=== PATIENT | male | born 1965 | race Caucasian/White ===

== ENCOUNTER → 2017-03-10 | Outpatient (CLI) | payer OTHER ==
[~2017-03-10] MED LIST: AMLO1CAP12 PO; ESCI20TA PO; HYDR-879 PO
[2017-03-10 10:20] LABS: BLOOD UREA NITROGEN 20 mg/dL (7-18)
[2017-03-10 10:24] LABS: ASPARTATE AMINO TRANSFERASE 34 U/L (15-37)
== END | disposition home or self-care (01) ==
LOC: STAR 08:58
PROVIDERS: ATTEND Orthopaedic Surgery Orthopaedic Surgery of the Spine
DX: Z01.818 Encounter for other preprocedural examination (principal); R94.31 Abnormal electrocardiogram [ECG] [EKG]; M54.12 Radiculopathy, cervical region; M96.0 Pseudarthrosis after fusion or arthrodesis
CPT/HCPCS: 36415; 71020; 80053; 81003; 85025; 93005

== ENCOUNTER 2020-04-19 13:40 | Emergency (ER) | payer OTHER ==
[~2020-04-19] VITALS: Ht 177.8 cm; Wt 80.0 kg
[~2020-04-19 13:40] MED LIST changes: +ACET-1600 PO; -AMLO1CAP12 PO; +AMLO1CAP13 PO; +HYDR-3622 PO; -HYDR-879 PO
--- NOTE | 2020-04-19 14:13 | NUR ---
ASSUMED CARE OF PATIENT. PATIENT REPORTS LLQ ABD PAIN THAT GOES INTO THE GROIN THAT STARTED AT 930 AM THIS MORNING. PT MOVING AROUND GURNEY IN PAIN. AT BEDSIDE. VS STABLE. CALL LIGHT IN PLACE. PT WAITING TO SEE DOCTOR.
[2020-04-19] MEDS ORDERED: KETOROLAC 30 MG/1 ML ONE (14:20)
[2020-04-19] MEDS ORDERED: HYDROmorphone 1 MG/ML, 1ML INJ ONE ×2 (14:20→14:50)
[2020-04-19] MEDS ORDERED: ONDANSETRON 2MG/ML, 2ML ONE (14:20)
[2020-04-19] MEDS: HYDROmorphone 2 MG/ML, 1ML IVPush PRN ×2 (14:24→14:52)
[2020-04-19] MEDS ORDERED: ONDANSETRON 2MG/ML, 2ML IVPush ONE (14:30)
[2020-04-19] MEDS ORDERED: KETOROLAC 30 MG/1 ML IVPush ONE (14:30)
--- NOTE | 2020-04-19 14:31 | NUR ---
DR CANCHOLA HAS SEEN PATIENT. LAB IN ROOM. AT BEDSIDE. PT MEDICATED FOR 10/10 PAIN. WILL CONTINUE TO MONITOR.
--- NOTE | 2020-04-19 14:36 | NUR ---
PT NOW 3/10 PAIN AFTER MEDICATION. VS STABLE. AT BEDSIDE. PT AWARE WE NEED A UA. CALL LIGHT IN PLACE WILL CONTINUE TO MONITOR.
[2020-04-19 14:48] LABS: BASOPHILS # (AUTO) 0.02 x10^3/uL (0-0.1); BASOPHILS % (AUTO) 0 % (0-1); EOSINOPHILS # (AUTO) 0.09 x10^3/uL (0-0.4); EOSINOPHILS % (AUTO) 1 % (1-7); LYMPHOCYTES # (AUTO) 1.23 x10^3/uL (1-3.4); LYMPHOCYTES % (AUTO) 16 % (22-44); MD NO; MEAN CORPUSCULAR HEMOGLOBIN 30.7 pg (27.5-34.5); MEAN CORPUSCULAR HGB CONC 33.2 g/dL (33.2-36.2); MEAN CORPUSCULAR VOLUME 92.3 fL (81-97); MEAN PLATELET VOLUME 9.5 fL (7.4-10.4); MONOCYTES # (AUTO) 0.66 x10^3/uL (0.2-0.8); MONOCYTES % (AUTO) 9 % (2-9); NEUTROPHILS # (AUTO) 5.83 x10^3/uL (1.8-6.8); NEUTROPHILS % (AUTO) 75 % (42-75); PLATELET COUNT 236 x10^3/uL (130-400); RED BLOOD COUNT 5.49 x10^6/uL (4.38-5.82); RED CELL DISTRIBUTION WIDTH 12.3 % (9.4-14.8)
[2020-04-19 14:55] LABS: ALBUMIN 4.5 g/dL (3.4-5.0); ANION GAP 10 mmol/L (5-15); CALCIUM 9.4 mg/dL (8.5-10.1); CHLORIDE 107 mmol/L (98-107); CREATININE 1.18 mg/dL (0.7-1.3)
--- NOTE | 2020-04-19 15:04 | NUR ---
PT WENT TO CT
--- NOTE | 2020-04-19 15:37 | NUR ---
UA SENT. PT RESTING IN ROOM. NO ACUTE DISTRESS NOTED. 09/30 PAIN. AT BEDSIDE. WILL COTNINUE TO MONITOR.
[2020-04-19 15:49] LABS: MICROSCOPIC INDICATED
--- NOTE | 2020-04-19 16:16 | NUR ---
PT REPORTS HE IS FEELING BETTER. AT BEDSIDE. VS STABLE. NO ACUTE DISTRESS NOTED. WILL CONTINUE TO MONITOR.
--- NOTE | 2020-04-19 16:49 | NUR ---
DR CANCHOLA HAS UPDATED PATIENT. PATIENT READY FOR DC
[2020-04-19 16:57] VITALS: BP 137/82
== END 2020-04-19 16:59 | disposition home or self-care (01) ==
LOC: ED 14:39
DX: N20.0 Calculus of kidney (principal); I10 Essential (primary) hypertension; E11.9 Type 2 diabetes mellitus without complications; Z90.49 Acquired absence of other specified parts of digestive tract
CPT/HCPCS: 36415; 74176; 80048; 81001; 82040; 85025; 96374; 96375; 99284; J1170; J1885; J2405

== ENCOUNTER 2020-11-20 10:53 | Emergency (ER) | payer OTHER ==
[~2020-11-20] VITALS: Ht 175.3 cm; Wt 88.0 kg
[~2020-11-20 10:53] MED LIST changes: -ESCI20TA PO; +ESCI20TA8 PO
[2020-11-20 11:08] VITALS: BP 146/87
--- NOTE | 2020-11-20 11:08 | NUR ---
PT C/O ABD PAIN AND CONSTIPATION X2 DAYS. PT STATES EMESIS X2 TODAY. NO OTC STOOL SOFTENERS TAKEN AT HOME. PT CONNECTED TO MONITORING. CALL LIGHT IN REACH.
[2020-11-20] MEDS ORDERED: ONDANSETRON ODT 8 MG ONE (11:14)
--- NOTE | 2020-11-20 11:15 | NUR ---
PT GOING TO XRAY.
--- NOTE | 2020-11-20 11:28 | NUR ---
PT BACK FROM XRAY. 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
--- NOTE | 2020-11-20 11:31 | NUR ---
LAB AT BEDSIDE
[2020-11-20 11:46] LABS: BASOPHILS % (AUTO) 0 % (0-1); EOSINOPHILS % (AUTO) 2 % (1-7); LYMPHOCYTES % (AUTO) 23 % (22-44); MEAN CORPUSCULAR HGB CONC 33.6 g/dL (33.2-36.2); MEAN PLATELET VOLUME 9.4 fL (7.4-10.4); MONOCYTES % (AUTO) 8 % (2-9); NEUTROPHILS % (AUTO) 67 % (42-75); PLATELET COUNT 219 x10^3/uL (130-400); RED BLOOD COUNT 5.17 x10^6/uL (4.38-5.82)
[2020-11-20 11:47] LABS: MD NO
[2020-11-20 11:53] LABS: ALANINE AMINOTRANSFERASE 86 U/L (12-78); ALBUMIN 3.5 g/dL (3.4-5.0); ANION GAP 3 mmol/L (5-15); CALCIUM 9.3 mg/dL (8.5-10.1); CHLORIDE 106 mmol/L (98-107); CREATININE 0.98 mg/dL (0.7-1.3)
[2020-11-20 11:55] LABS: ALKALINE PHOSPHATASE 68 U/L (45-117); BILIRUBIN,TOTAL 0.4 mg/dL (0.2-1.0); TOTAL PROTEIN 7.5 g/dL (6.4-8.2)
[2020-11-20] MEDS ORDERED: ONDANSETRON ODT 8 MG PO ONE (12:00)
== END 2020-11-20 12:14 | disposition home or self-care (01) ==
LOC: ED 12:02
DX: K59.00 Constipation, unspecified (principal); R10.84 Generalized abdominal pain; R11.2 Nausea with vomiting, unspecified; I10 Essential (primary) hypertension; E11.65 Type 2 diabetes mellitus with hyperglycemia; Z90.49 Acquired absence of other specified parts of digestive tract
CPT/HCPCS: 36415; 74021; 80053; 85025; 99284; Q0162